=== PATIENT | female | born 1965 | race Two or more races ===

== ENCOUNTER 2021-05-08 09:15 | Inpatient (IN) | payer OTHER ==
[~2021-05-08] VITALS: Ht 157.5 cm; Wt 95.3 kg
[2021-05-08] MEDS ORDERED: AMBIEN10 MG (09:30)
[2021-05-08] MEDS ORDERED: SYNTHROID50 MCG (09:30)
[2021-05-08] MEDS ORDERED: LIPITOR20 MG (09:32)
[2021-05-08] MEDS ORDERED: PROTONIX40 MG (09:32)
[2021-05-08] MEDS ORDERED: NEURONTIN600 M1 (09:32)
[2021-05-08] MEDS ORDERED: CARAFATE1 GM (09:32)
[2021-05-08] MEDS ORDERED: CLARITIN10 MG (09:33)
== END 2021-05-11 16:14 | disposition home or self-care (01) | DRG 419 ==
LOC: ER 09:15 → SURG 13:45
PROVIDERS: ADMIT Specialist; ATTEND Specialist
PROC: BF532ZZ Other Imaging of Gallbladder and Bile Ducts using Fluorescing Agent (ICD-10-PCS; principal; 2021-05-09 13:00)
PROC: 0FT44ZZ Resection of Gallbladder, Percutaneous Endoscopic Approach (ICD-10-PCS; principal; 2021-05-09 13:00)
PROC: 4A12X4Z Monitoring of Cardiac Electrical Activity, External Approach (ICD-10-PCS; 2021-05-10)
DX: K80.00 Calculus of gallbladder with acute cholecystitis without obstruction (principal); Z20.822 Contact with and (suspected) exposure to COVID-19

== ENCOUNTER → 2022-05-14 08:00 | Outpatient (CLI) | payer OTHER ==
[~2022-05-14] VITALS: Ht 157.5 cm; Wt 94.8 kg
[~2022-05-14 08:00] MED LIST: AMBIEN PO; AMBIEN10 MG; CARAFATE1 GM; CLARITIN10 MG; LASIX20 MG PO; LIPITOR20 MG; METFORMIN HCL500 M3 PO; NEURONTIN600 M1; PROTONIX40 MG; SYNTHROID100 MCG PO; SYNTHROID50 MCG; [UNRECOGNIZED DRUG - OTHER] PO
== END | disposition home or self-care (01) ==
LOC: LAB 08:00 → EDSTATUS 05-16 07:45 → SURH 05-16 07:45
PROVIDERS: ATTEND Obstetrics & Gynecology
DX: N83.291 Other ovarian cyst, right side (principal)